=== PATIENT | male | born 1975 ===

== ENCOUNTER 2018-02-26 14:43 | Emergency (ER) | payer BC ==
[~2018-02-26] VITALS: Ht 182.9 cm; Wt 108.9 kg
[2018-02-26] MEDS ORDERED: LISINOPRIL20 MG PO (15:02)
[2018-02-26] MEDS ORDERED: ACID REDUCER150 MG PO (15:03)
[2018-02-26] MEDS ORDERED: MINIPRESS1 MG PO (15:03)
[2018-02-26] MEDS ORDERED: TRAZODONE HCL100 MG PO (15:03)
[2018-02-26] MEDS ORDERED: NALTREXONE HCL50 MG PO (15:05)
[2018-02-26] MEDS ORDERED: MAGNESIUM400 M1 PO (15:05)
[2018-02-26] MEDS ORDERED: XANAX0.5 MG PO (15:17)
== END 2018-02-26 15:27 | disposition home or self-care (01) ==
LOC: ED 14:43
DX: F41.0 Panic disorder [episodic paroxysmal anxiety] (principal); Z88.8 Allergy status to other drugs, medicaments and biological substances; Z79.899 Other long term (current) drug therapy
CPT/HCPCS: 99283